=== PATIENT | female | born 1930 | race Caucasian/White ===

== ENCOUNTER → 2016-08-31 | Outpatient (REF) | payer MEDICARE, OTHER ==
[2016-08-31 15:49] LABS: BASOPHILS % (AUTO) 1 % (0-2); EOSINOPHILS # (AUTO) 0.1 10^3uL; EOSINOPHILS % (AUTO) 1 % (0-4); LYMPHOCYTES # (AUTO) 1.5 X10^3; MEAN CORPUSCULAR HEMOGLOBIN 29.1 PG (26.0-34.0); MEAN CORPUSCULAR HGB CONC 33.6 g/dL (31.0-37.0); MEAN CORPUSCULAR VOLUME 87 FL (80-100); MEAN PLATELET VOLUME 10.2 FL (6.0-9.5); MONOCYTES # (AUTO) 0.8 X10^3; MONOCYTES % (AUTO) 11 % (3-11); NEUTROPHILS # (AUTO) 4.5 X10^3; NEUTROPHILS % (AUTO) 65 % (51-67); PLATELET COUNT 282 10^3uL (150-450); WHITE BLOOD COUNT 6.95 10^3uL (4.0-11.0)
[2016-08-31 15:56] LABS: ALBUMIN 3.9 g/dL (3.4-5.0); ANION GAP 15.5 MEQ/L (3-15); CALCULATED IONIZED CALCIUM 4.1 mg/dL (3.8-4.6)
== END ==
LOC: LAB 15:34
PROVIDERS: ATTEND Physician Assistant Surgical
DX: M81.0 Age-related osteoporosis without current pathological fracture (principal); R00.2 Palpitations
CPT/HCPCS: 80053; 82306; 84443; 85025

== ENCOUNTER → 2016-08-31 | Outpatient (CLI) | payer MEDICARE, OTHER | LOC: RT 15:38 | PROVIDERS: ATTEND Physician Assistant Surgical | DX: R00.2 Palpitations (principal) | CPT/HCPCS: 93225 ==

== ENCOUNTER → 2016-09-07 | Outpatient (CLI) | payer MEDICARE, OTHER ==
--- NOTE | 2016-09-07 10:00 | Diagnostic Imaging Report ---
INDICATION: Postmenopausal, screening for osteoporosis. COMPARISON: None. DISCUSSION: Abdominal density measurements of the lumbar spine and left hip were performed on a [employer] DEXA scanner. Bone mineral density within the lumbar spine, L2-L4, measures 1.210 g per centimeters squared which correlates to a T score of 0.1, normal. Bone mineral density within the total left hip measures 0.602 g per centimeters squared which correlates to a T score of -3.3, osteoporotic. Exam is considered osteoporotic by World Health Organization guidelines. Recommend initiation of treatment. Recommend one year followup DEXA scan. There is a high associated fracture risk. IMPRESSION: 1. Osteoporosis. Dictated by: Dictated on workstation # [id number]
== END ==
LOC: RAD 08:55
PROVIDERS: ATTEND Physician Assistant Surgical
DX: M81.0 Age-related osteoporosis without current pathological fracture (principal)
CPT/HCPCS: 77080